=== PATIENT | female | born 1970 | race Caucasian/White ===

== ENCOUNTER 2025-03-04 13:27 | Outpatient (OUT) | payer BC, SELFPAY ==
--- OUTSIDE RECORDS SUMMARY | 2025-03-04 13:33 | XMS_ITS | Encounter Summary ---
Author Organization [facility] Address [address] [place] [address] Care Team Providers Care Sizing End Bander Name Role Phone Wayne Matta MD Unavailable Wayne Matta MD Primary Care Provider [phone] Encounter Details Date Type Department Care Team (Late st Contact Info) Description 02/20/2025 Telephone [facility] [address] [facility] [address] [place] [address] Leela Avina MA Social History Tobacco Use Types Packs/Day Years Used Date Smoking Tobacco: Former Cigarettes Smokeless Tobacco: Never Comments:Last smoked: 1-5 ye ars Alcohol Use Standard Drinks/Week Comments Not Currently 0 (1 standard drink = 0.6 oz pure alcohol) Caffeine intake: 1-2 cups per day Humiliation, Afraid, Rape, and Kick questionnair e Answer Date Recorded Within the last year, have y ou been afraid of your partner or ex-partner? No 02/01/2023 Within the last year, have y ou been humiliated or emotionally abused in other ways by your partner or ex-partner? No Within the last year, have y ou been kicked, hit, slapped, or otherwise physically hurt by your partner or ex-partner? No 02/01/2023 Within the last year, have y ou been raped or forced to have any kind of sexual activity by your partner or ex-partner? No 02/01/2023 Social Connection and Isolation Panel [NHANES] A nswer Date Recorded In a typical week, how many times do you talk on the phone with family, friends, or neighbors? Three times a week 02/01/2023 How often do you get togethe r with friends or relatives? Once a week 02/01/2023 How often do you attend chur ch or christianity services? Patient declined 02/01/2023 Do you belong to any clubs o r organizations such as catholic groups, unions, fraternal or athletic groups, or school groups? No 02/01/2023 How often do you attend meet ings of the clubs or organizations you belong to? Patient declined 02/01/2023 Are you , , di vorced, , never , or living with a partner? 02/01/2023 AUDIT-C Answer Date Recorded Q1: How often do you have a drink containing alc ohol? Monthly or less 02/01/2023 Q2: How many drinks containi ng alcohol do you have on a typical day when you are drinking? 1 or 2 02/01/2023 Q3: How often do you have si x or more drinks on one occasion? Never 02/01/2023 Overall Financial Resource Strain (CARDIA) Answe r Date Recorded How hard is it for you to pa y for the very basics like food, housing, medical care, and heating? Not very hard 02/01/2023 [facility] - Occupational Stress Questionnaire Answer Date Recorded Do you feel stress - tense, restless, nervous, or anxious, or unable to sleep at night because your mind is troubled all the time - these days? Very much 02/01/2023 Exercise Vital Sign Answer Date Recorde d On average, how many days pe r week do you engage in moderate to strenuous exercise (like a brisk walk)? 3 days 02/01/2023 On average, how many minutes do you engage in exercise at this level? 10 min 02/01/2023 Hunger Vital Sign Answer Date Recorded Within the past 12 months, y ou worried that your food would run out before you got the money to buy more. Never true 02/02/20 23 Within the past 12 months, t he food you bought just didn't last and you didn't have money to get more. Never true 02/01/2023 PRAPARE - Transportation Answer Date Re corded In the past 12 months, has l ack of transportation kept you from medical appointments or from getting medications? No 09/2022 In the past 12 months, has l ack of transportation kept you from meetings, work, or from getting things needed for daily living? No 02/01/2023 Housing Stability Vital Sign Answer Timothy e Recorded In the last 12 months, was t here a time when you were not able to pay the mortgage or rent on time? No 02/01/2023 In the last 12 months, how many places have you lived? 1 02/01/2023 In the last 12 months, was t here a time when you did not have a steady place to sleep or slept in a fci (including now)? No 02/01/2023 Comments Unknown Sex and Gender Information Value Date Recorded Sex Assigned at Female 01/31/2023 5:29 PM EDT Legal Sex Female 7:19 PM EDT Gender Identity Female 01/31/2023 5:29 PM EDT Sexual Orientation Straight 01/31/2023 5: 29 PM EDT documented as of this encounter Miscellaneous Notes * Telephone Encounter - Leela Avina MA - 02/20/2025 7:30 AM EDT Refaxed mamm to [facility] documented in this encounter Plan of Treatment Upcoming Encounters Date Type Department Care Team (Late st Contact Info) Description 03/04/2025 3:30 PM EDT Office Visit [facility] [facility] [address] [facility] [address] [place] [address] Wayne Matta MD [address] [facility] [address] [place] [address] documented as of this encounter Visit Diagnoses Not on filedocumented in this encounter Care Teams Sizing End Bander Relationship Specialty Start Date End Date Wayne Matta MD [address] [facility] [address] [place], [place] [id number] PCP - [place] [employer] 08/28/20 Wayne Matta MD [address] [place] [address] PCP - General Family Medicine 10/05/22 documented as of this encounter
--- OUTSIDE RECORDS SUMMARY | 2025-03-04 13:33 | XMS_ITS | Encounter Summary ---
Author Organization [facility] Address [address] [place] [address] Care Team Providers Care City Mail Carrier Name Role Phone Wayne Matta MD Unavailable Wayne Matta MD Primary Care Provider [phone] Encounter Details Date Type Department Care Team (Late st Contact Info) Description 06/01/2023 Abstract [facility] [address] [facility] 110 [place] [address] Wayne Matta MD 112 [facility] 110 [place] [address] Social History Tobacco Use Types Packs/Day Years [...] 02/01/2023 How often do you attend chur or holiness services? Patient declined 02/01/2023 Do you belong to any clubs o r organizations such as druze groups, unions, fraternal or athletic groups, or [...] care, and heating? Not very hard 02/01/2023 [facility] - Occupational Stress Questionnaire Answer Date Recorded [...] place to sleep or slept in a intermediate (including now)? No 02/01/2023 Comments Unknown Sex and Gender Information Value Date Recorded Sex Assigned at Female 01/31/2023 5:29 PM EDT Legal Sex Female 7:19 PM EDT Gender Identity Female 01/31/2023 5:29 PM EDT Sexual Orientation Straight 01/31/2023 5: 29 PM EDT documented as of this encounter Plan of Treatment Upcoming Encounters Date Type Department Care Team (Late st Contact Info) Description 03/04/2025 3:30 PM EDT Office Visit [facility] [place] [facility] [address] [place] [address] [place] [address] Wayne Matta MD [address] [facility] [address] [place] [address] documented as of this encounter Visit Diagnoses Not on filedocumented in this encounter Care Teams City Mail Carrier Relationship Specialty Start Date End Date Wayne Matta MD [address] [facility] [address] [place] [address] PCP - [place] [employer] 08/28/20 Wayne Matta MD [address] [facility] [address] [place] [address] PCP - General Family Medicine 10/05/22 documented as of this encounter
--- OUTSIDE RECORDS SUMMARY | 2025-03-04 13:33 | XMS_ITS | Encounter Summary ---
Author Organization [facility] Address [address] [place] [address] Care Team Providers Care Economic History Teacher Name Role Phone Wayne Matta MD Unavailable Wayne Matta MD Primary Care Provider [phone] Reason for Visit * Reason Onset Date Comments Med Refill 02/15/2025 Encounter Details Date Type Department Care Team (Late st Contact Info) Description 02/15/2025 Refill [facility] [address] [facility] 110 [place] [address] Rajwinder Mendiola PA [address] [facility] 110 [place] [address] Insomnia, unspecified type Social History Tobacco Use Types Packs/Day Years [...] How often do you attend chur or adventist services? Patient declined 02/01/2023 Do you belong to any clubs o r organizations such as gnosticist groups, unions, fraternal or athletic groups, or [...] care, and heating? Not very hard 02/01/2023 [facility] - Occupational Stress Questionnaire Answer Date [...] place to sleep or slept in a halfway (including now)? No 02/01/2023 Comments Unknown Sex and Gender Information Value Date Recorded Sex Assigned at Female 01/31/2023 5:29 PM EDT Legal Sex Female 7:19 PM EDT Gender Identity Female 01/31/2023 5:29 PM EDT Sexual Orientation Straight 01/31/2023 5: 29 PM EDT documented as of this encounter Miscellaneous Notes * Telephone Encounter - MALGORZATA Ramirez - 02/18/2025 8:10 AM EDT OARRS reviewed, Rx sent into patient's pharmacy. documented in this encounter Plan of Treatment Upcoming Encounters Date Type Department Care Team (Late st Contact Info) Description 03/04/2025 3:30 PM EDT Office Visit [facility] [place] [facility] [address] [facility] [address] [place] [address] Wayne Matta MD [address] [employer] [address] [place] [address] documented as of this encounter Visit Diagnoses Diagnosis Insomnia, unspecified type documented in this encounter Care Teams Economic History Teacher Relationship Specialty Start Date End Date Wayne Matta MD [address] [facility] 110 [place] [address] PCP - Paulo Castillo 08/28/20 Wayne Matta MD [address] [facility] 110 [place] [address] PCP - General Family Medicine 10/05/22 documented as of this encounter
--- OUTSIDE RECORDS SUMMARY | 2025-03-04 13:33 | XMS_ITS | Clinical Summary ---
Author Organization [employer] [facility] Address [id number] [place] [address] Care Team Providers Care Quality System Manager Name Role Phone Unavailable Primary Care Provider Unavailabl e Social History Tobacco Use Types Packs/Day Years Used Date Smoking Tobacco: Never Assessed Childcare Answer Date Recorded Childcare Unknown 11/08/2018 Employment Answer Date Recorded Employment Unknown 11/08/2018 Comments Unknown Sex and Gender Information Value Date Recorded Sex Assigned at Not on file Legal Sex Female 12:54 PM EST Gender Identity Not on file Sexual Orientation Not on file Plan of Treatment Not on file Medical Devices Not on file
--- OUTSIDE RECORDS SUMMARY | 2025-03-04 13:33 | XMS_ITS | Encounter Summary ---
Author Organization [facility] Address [address] [place] [address] Care Team Providers Care Trim Attacher Name Role Phone Wayne Matta MD Unavailable Wayne Matta MD Primary Care Provider [phone] Encounter Details Date Type Department Care Team (Late st Contact Info) Description 06/01/2023 Abstract [facility] [place] [facility] [address] [facility] 110 [place] [address] Wayne Matta MD 112 [facility] 110 [place] [address] Social History Tobacco Use Types Packs/Day Years [...] How often do you attend chur or denominational services? Patient declined 02/01/2023 Do you belong to any clubs o r organizations such as shinto groups, unions, fraternal or athletic groups, or [...] care, and heating? Not very hard 02/01/2023 [facility] - Occupational Stress Questionnaire Answer Date Recorded [...] place to sleep or slept in a [place] [facility] [place] facility (including now)? No 02/01/2023 Comments Unknown Sex [...] Visit [facility] [place] [facility] [address] [place] [address] [place] [address] Wayne Matta MD [address] [facility] [address] [place] [address] documented as of this encounter Visit Diagnoses Not on filedocumented in this encounter Care Teams Trim Attacher Relationship Specialty Start Date End Date Wayne Matta MD [address] [facility] [address] [place] [address] PCP - [place] [employer] 08/28/20 Wayne Matta MD [address] [facility] [address] [place] [address] PCP - General Family Medicine 10/05/22 documented as of this encounter
--- OUTSIDE RECORDS SUMMARY | 2025-03-04 13:33 | XMS_ITS | Clinical Summary ---
Author Organization [facility] Address [address] [place] [address] Care Team Providers Care Scruff Worker Name Role Phone Wayne Carmichael MD Unavailable Wayne Carmichael MD Primary Care Provider [phone] Allergies Active Allergy Reactions Criticality Noted Date Comments Amoxicillin Unknown 01/27/2023 Amoxicillin-Pot Clavulanate Unknown 05/27/2016 Yeast Infections Fish Protein-Containing Drug Products GI intolerance 01/27/2023 Rosuvastatin 01/27/2023 Other Reaction(s): muscle aches Shellfish Protein-Containing Drug Products 01/27/2023 Other Reaction(s): numbness Medications mometasone (Nasonex) 50 MCG/ACT nasal spray Administer 2 sprays into each nostril in the morning. Active losartan (Cozaar) 50 MG tablet Take 1 tablet by mouth in the morning. Active metoprolol succinate XL (Toprol-XL) 100 MG 24 hr tablet Take 1 tablet by mouth 1 (one) time each day. 3 Active atorvastatin (Lipitor) 40 MG tablet Take 1 tablet by mouth 1 (one) time each day at the same time. Active Lancets (OneTouch Delica Plus [id number]) misc Test daily 3 Active Blood Glucose Monitoring Suppl (Blood Glucose Monitor System) w/Device kitIndications: Type 2 diabetes mellitus with diabetic nephropathy, without long-term current use of insulin (HCC) 1 each Daily 1 kit 4 Active glucose blood (OneTouch Ultra Blue Test) test stripIndication s:Type 2 diabetes mellitus with diabetic nephropathy, without long-term current use of insulin (HCC) Use 1 daily 100 strip 3 4 Active magnesium 30 MG tablet Take 30 mg by mouth in the morning and 30 mg before bedtime. Active fluticasone (Flonase) 50 MCG/ACT nasal spray [place] 2 sprays every day by intranasal route as directed for 14 days. 5 Active fluconazole (Diflucan) 150 MG tabletIndicatio ns:Yeast infection Take 1 tablet and then three days later take 1 tablet 2 tablet 5 Active Semaglutide, 2 MG/DOSE, (Ozempic, 2 MG/DOSE,) 8 MG/3ML solution pen-injectorInd ications:Type 2 diabetes mellitus with diabetic nephropathy, without long-term current use of insulin (HCC) Inject 2 mg under the skin 1 (one) time per week 9 mL 3 5 Active ALPRAZolam (Xanax) 0.5 MG tabletIndicatio ns:Neck muscle spasm Take 1 tablet (0.5 mg) by mouth 2 (two) times a day as needed for anxiety 30 tablet 5 Active zolpidem (Ambien) 10 MG tabletIndicatio ns:Insomnia, unspecified type Take 1 tablet (10 mg) by mouth as needed at bedtime for sleep 90 tablet 5 05/19/20 25 Active zolpidem (Ambien) 10 MG tabletIndicatio ns:Insomnia, unspecified type Take 1 tablet (10 mg) by mouth as needed at bedtime for sleep 90 tablet 5 02/16/20 25 Discontin ued(Reord er) Active Problems Problem Noted Date Diagnosed Date Excessive sweating 05/28/2024 Assessment & Plan (05/28/2024 11:08 AM EST): Dry Lilly Consider Ditropan or Detrol Body mass index (BMI) 37.0-37.9, adult Assessment & Plan (09/20/2024 3:05 PM EDT): Weight loss encouraged Assessment & Plan (03/12/2024 3:30 PM EDT): Diet and exercise encouraged Tinnitus of both ears 03/12/2024 Assessment & Plan (05/28/2024 11:06 AM EST): Avoid Salt Coffee Normal hearing screen Refer Dr. Gabriel Loud exposure at a young age Assessment & Plan (03/12/2024 3:31 PM EDT): Will do Hearing test and referral to ENT Lethargic 01/09/2024 Morbid (severe) obesity due to excess calories 1 06/10/2022 Assessment & Plan (09/20/2024 3:05 PM EDT): Diet and Exercise Encouraged Assessment & Plan (03/12/2024 3:29 PM EDT): Weight loss encouraged Family history of coronary artery disease in mot her 03/08/2023 Neck muscle spasm 02/20/2023 Cervical radiculopathy 02/20/2023 Adjustment disorder with anxiety 01/27/2023 Assessment & Plan (09/06/2023 8:51 AM EDT): Patient's Medicine is effective at controlling symptoms at current dose and frequency. PDMP reviewed with no evidence of overuse and abuse D/W patient to avoid use of benzodiazepines when consuming alcohol Advised against operating heavy machinery and driving long distances while on medicines. Arthritis of right foot 01/27/2023 Cystic breast 01/27/2023 Degeneration of lumbar intervertebral disc 01/27 Dribbling of urine 01/27/2023 Essential hypertension 01/27/2023 Assessment & Plan (09/20/2024 3:17 PM EDT): Our specific goals, for your hypertension, is to keep your blood pressure less than 140/90, and the importance of weight control. We made recommendations on how to control your blood pressure, and minimize your risk of these copmplications. We also discussed your current barriers to a healthy living and importance of healthy diet and exercise. Prior to your visit today we have reviewed your chart and formed a plan to assist with providing you the best possible care. We reviewed the possible complications of hypertension including, stroke, heart failure and kidney impairment. In addition, we discussed your medications, the importance of taking them as prescribed. DASH diet handouts Assessment & Plan (03/08/2023 8:45 AM EDT): Our specific goals, for your hypertension, is to keep your blood pressure less than 140/90, and the importance of weight control. We made recommendations on how to control your blood pressure, and minimize your risk of these copmplications. We also discussed your current barriers to a healthy living and importance of healthy diet and exercise. Prior to your visit today we have reviewed your chart and formed a plan to assist with providing you the best possible care. We reviewed the possible complications of hypertension including, stroke, heart failure and kidney impairment. In addition, we discussed your medications, the importance of taking them as prescribed. DASH diet handouts Gastritis, unspecified, without bleeding 023 Gastrocnemius equinus of left lower extremity Gastroduodenitis 01/27/2023 Hyperlipidemia 01/27/2023 Assessment & Plan (09/20/2024 3:05 PM EDT): This is a chronic medical condition that is stable since last assessment. No changes in treatment are suggested at this time. Continue Current meds. Assessment & Plan (03/08/2023 8:46 AM EDT): This is a chronic medical condition that is stable since last assessment. No changes in treatment are suggested at this time. Insomnia 01/27/2023 Low HDL (under 40) 01/27/2023 Plantar fascial fibromatosis 01/27/2023 Sinusitis 01/27/2023 Assessment & Plan (09/20/2024 3:17 PM EDT): Add Probiotic to help replenish the good bacteria that are destroyed by the Antibiotics Florastor Florajen Align or try Activia in Yogurt Probiotics reduce the risk of antibiotic induced diarrhea Status post hysterectomy 01/27/2023 Type 2 diabetes mellitus with diabetic nephropat hy 01/27/2023 Assessment & Plan (09/20/2024 3:17 PM EDT): No Tobacco use Follow ADA 1800 diet low carbohydrate Continue Med Compliance Goal LDL less than 100 Goal BP 130/80 Goal HgbA1c < 7.0% Monitor Feet, monitor for infection Needs Exercise Yearly eye exams Prior to your visit today we reviewed your chart and outlined testing and treatment needed for your care. Reviewed poissble complications of diabetes including, loss of vision, kidney failure and increased risk of heart attacks and stroke. We made recommendations on how to control your blood sugars, and minimize your risk of these complications. We discussed your current barriers to a healthy living and importance of healthy diet and exercise. Has been doing Chromium Assessment & Plan (03/12/2024 3:31 PM EDT): No Tobacco use Follow ADA 1800 diet low carbohydrate Continue Med Compliance Goal LDL less than 100 Goal BP 130/80 Goal HgbA1c < 7.0% Monitor Feet, monitor for infection Needs Exercise Yearly eye exams Prior to your visit today we reviewed your chart and outlined testing and treatment needed for your care. Reviewed poissble complications of diabetes including, loss of vision, kidney failure and increased risk of heart attacks and stroke. We made recommendations on how to control your blood sugars, and minimize your risk of these complications. We discussed your current barriers to a healthy living and importance of healthy diet and exercise. Assessment & Plan (09/06/2023 8:50 AM EDT): No Tobacco use Follow ADA 1800 diet low carbohydrate Continue Med Compliance Goal LDL less than 100 Goal BP 130/80 Goal HgbA1c < 7.0% Monitor Feet, monitor for infection Needs Exercise Yearly eye exams Prior to your visit today we reviewed your chart and outlined testing and treatment needed for your care. Reviewed poissble complications of diabetes including, loss of vision, kidney failure and increased risk of heart attacks and stroke. We made recommendations on how to control your blood sugars, and minimize your risk of these complications. We discussed your current barriers to a healthy living and importance of healthy diet and exercise. Assessment & Plan (03/08/2023 8:44 AM EDT): No Tobacco use Follow ADA 1800 diet low carbohydrate Continue Med Compliance Goal LDL less than 100 Goal BP 130/80 Goal HgbA1c < 7.0% Monitor Feet, monitor for infection Needs Exercise Yearly eye exams Prior to your visit today we reviewed your chart and outlined testing and treatment needed for your care. Reviewed poissble complications of diabetes including, loss of vision, kidney failure and increased risk of heart attacks and stroke. We made recommendations on how to control your blood sugars, and minimize your risk of these complications. We discussed your current barriers to a healthy living and importance of healthy diet and exercise. Vaginospasm 01/27/2023 Pelvic mass in female 05/29/2016 Pelvic pain in female 05/29/2016 Encounters Date Type Department Care Team Description 03/04/2025 3:30 PM EDT Office Visit [facility] [address] [facility] [address] [place] [address] Wayne Carmichael MD 02/20/2025 Telephone [facility] [address] [facility] [address] [place] [address] Leela Avina MA 02/15/2025 Refill [facility] [address] [facility] [address] [place] [address] Rajwinder Mendiola PA Insomnia, unspecified type 12/10/2024 Refill [facility] [address] [facility] [address] [place] [address] Wayne Carmichael MD Neck muscle spasm 12/10/2024 Refill [facility] [address] [facility] [address] [place] [address] Wayne Carmichael MD Type 2 diabetes mellitus with diabetic nephropathy, without long-term current use of insulin ([facility]) 12/10/2024 Refill [facility] [address] [facility] [address] [place] [address] Rajwinder Mendiola PA Yeast infection from Last 3 Months Immunizations Immunization Administration Dates Next Due Influenza Whole 03/03/2010 Zoster, Recombinant 12/19/2021,10/09/2021 Family History Medical History Relation Name Comments Arthritis Father Jamel Cancer Father Jamel Diabetes Father Jamel Stroke Father Jamel Hypertension Maternal Grandfather Tunde Diabetes Maternal Grandmother Mackenzie Stroke Maternal Grandmother Mackenzie Arthritis Mother Elida Diabetes Mother Elida Stroke Mother Elida Vision loss Mother's Sister Neda Cancer Sister Luisa Relation Name Status Comments Father Jamel Maternal Grandfather Tunde Maternal Grandmother Mackenzie Mother Elida Mother's Sister Neda Sister Luisa Social History Tobacco Use Types Packs/Day Years Used Date Smoking Tobacco: Former Cigarettes Smokeless Tobacco: Never Tobacco Cessation:Counseling Given: Not Answered Comments:Last smoked: 1-5 years Alcohol Use Standard Drinks/Week Comments Not Currently [...] any clubs o r organizations such as sikh groups, unions, fraternal or athletic groups, or [...] care, and heating? Not very hard 02/01/2023 PHQ-2 Answer Date Recorded Patient Health Questionnaire-2 Score 0 03/04/2025 [facility] - Occupational Stress [...] place to sleep or slept in a senior care (including now)? No 02/01/2023 Comments Unknown Sex and Gender Information Value Date Recorded Sex Assigned at Female 01/31/2023 5:29 PM EDT Legal Sex Female 7:19 PM EDT Gender Identity Female 01/31/2023 5:29 PM EDT Sexual Orientation Straight 01/31/2023 5: 29 PM EDT Last Filed Vital Signs Vital Sign Reading Time Taken Comments Blood Pressure 124/82 09/20/2024 2:59 PM EDT Pulse 98 09/20/2024 2:59 PM EDT Temperature - - Respiratory Rate 16 02/01/2023 1:13 PM EDT Oxygen Saturation 94% 09/20/2024 2:59 PM EDT Inhaled Oxygen Concentration - - Weight 93.9 kg (207 lb) 09/20/2024 2:59 PM EDT Height 157.5 cm (5' 2 ) 09/20/2024 2:59 PM EDT Body Mass Index 37.86 09/20/2024 2:59 PM EDT Plan of Treatment Upcoming Encounters Date Type Department Care Team (Late st Contact Info) Description 03/04/2025 3:30 PM EDT [facility] [address] [place] [address] Wayne Carmichael MD [address] [facility] [address] [place] [address] Health Maintenance Due Date Last Done Comments CT Colonography 1970 FIT-DNA 1970 FIT 1970 FOBT 1970 Sigmoidoscopy 1970 Mammogram 06/02/2023 06/02/2022, 11/28, 03/06/2019, Additional history exists Diabetes: Hemoglobin A1C 12/12/2024 025, 03/12/2024, 09/06/2023, Additional history exists Diabetes: Retinopathy Screening 12/29/2024 3, 08/03/2018 Influenza Vaccine (#1) 2025 03/03/2010 Diabetes: Urine Protein Screening 09/12/2025 09/12/2024, 09/06/2023, 05/06/2022, Additional history exists Colonoscopy 05/04/2026 05/04/2016 Colorectal Cancer Screening 05/04/2026 Procedures Procedure Name Priority Date/Time Associated Diagnosis Comments MICROALBUMIN / CREATININE URINE RATIO Routine 09/12/2024 8:03 AM EDT Type 2 diabetes mellitus with diabetic nephropathy, without long-term current use of insulin (HCC) Annual physical exam HEMOGLOBIN A1C Routine 09/12/2024 8:03 AM EDT Type 2 diabetes mellitus with diabetic nephropathy, without long-term current use of insulin (HCC) Annual physical exam DIABETIC RETINOPATHY SCREENING - OU - BOTH EYES Routine 12/29/2022 1:53 PM EDT BI MAMMOGRAM SCREENING TOMOSYNTHESIS BILATERAL Routine 06/02/2022 COLONOSCOPY Routine 05/04/2016 12:00 PM EST from Last 3 Months or Most Recently Relevant to Health Maintenance Results * Microalbumin / creatinine urine ratio (09/12/2024 8:03 AM EDT) CREATININE, RANDOM URINE 141 20 - 275 mg/dL [facility] ALBUMIN, URINE 0.5 See Note: mg/dL [facility] Comment: Reference Range: Reference Range Not established ALBUMIN/CREATININE RATIO, RANDOM URINE 4 <30 mg/g creat [facility] Comment: The ADA defines abnormalities in albumin excretion as follows: Albuminuria Category Result (mg/g creatinine) Normal to Mildly increased <30 Moderately increased 30-299 Severely increased > OR = 300 The ADA recommends that at least two of three specimens collected within a 3-6 month period be abnormal before considering a patient to be within a diagnostic category. Urine Urine specimen obtained by clean catch procedure / Unknown 09/12/2024 8:03 AM EDT 09/12/2024 8:04 AM EDT Narrative [facility] - 09/13/2024 11:39 AM EDT FASTING:YES FASTING: YES Resulting Agency Comment Performing Organization Information Site ID: QPT Name: [facility] [employer] [facility] Address: [address] [place] [address], [address] [place] [phone] Director: Donald Dickey MD Wayne Carmichael MD LAB URINE ORDERABLES Final Resul t Performing Organization Address [facility] Co de Phone Number [facility] * (ABNORMAL) Hemoglobin A1c (09/12/2024 8:03 AM EDT) Hemoglobin A1C 6.4(H) <5.7 % [facility] Comment: For someone without known diabetes, a hemoglobin A1c value between 5.7% and 6.4% is consistent with prediabetes and should be confirmed with a follow-up test. For someone with known diabetes, a value <7% indicates that their diabetes is well controlled. A1c targets should be individualized based on duration of diabetes, age, comorbid conditions, and other considerations. This assay result is consistent with an increased risk of diabetes. Currently, no consensus exists regarding use of hemoglobin A1c for diagnosis of diabetes for children. Blood Venous blood specimen / Unknown 09/12/2024 8:03 AM EDT 09/12/2024 8:04 AM EDT Narrative [facility] - 09/13/2024 11:39 AM EDT FASTING:YES FASTING: YES Resulting Agency Comment Performing Organization Information Site ID: QPT Name: [facility] [employer] [facility] Address: [address] [place] [address], [address] [place] [phone] Director: Donald Dickey MD Wayne Carmichael MD LAB BLOOD ORDERABLES Final Resul t Performing Organization Address [facility] Co de Phone Number [facility] * Diabetic Retinopathy Screening - OU - Both Eyes (12/29/2022 1:53 PM EDT) Anatomical Region Laterality Modality Head Other Wayne Carmichael MD OPHTH PHOTOGRAPHY Final Result * Bilateral screening mammogram with tomosynthesis (06/02/2022) Anatomical Region Laterality Modality Breast Bilateral Mammography Narrative 06/02/2022 12:00 AM EST PERFORMED AT [facility] LOCATION:[place] [address] Patient: JENIFFER FELICIANO Exam Date: 06/02/2022 : 1970 Gender:F Ordering : DR WAYNE CARMICHAEL M.D. Admission #: [id number] Family : Order #: [id number] CLICK HERE TO VIEW EXAM RADIOLOGY REPORT PROCEDURE: MAMMOGRAM SCREENING 3D BILATERAL CAD COMPARISON: MG MAMM SCREEN EDUIN W CAD 02/27/2019. MG MAMM SCREEN 3D EDUIN CAD 12/23/2020. INDICATIONS: Screening mammography Calculator Name NCI Breast Cancer Risk Assessment Tool 5 Year Breast Cancer Risk 1.20% Lifetime Breast Cancer Risk 9.60% Personal Breast Cancer No Personal Ovarian Cancer No Treatments None Family Cancers None LOCATION: [facility] BREAST COMPOSITION: Extremely dense which lowers the sensitivity of mammography. FINDINGS: DIAGNOSTIC CATEGORY 2--BENIGN FINDING: RIGHT BREAST: No significant suspicious finding. Scattered benign-appearing calcifications are present. No significant change has occurred. LEFT BREAST: No significant suspicious finding. Scattered benign-appearing calcifications are present. No significant change has occurred. RECOMMENDATIONS: ROUTINE MAMMOGRAM AND CLINICAL EVALUATION IN 12 MONTHS. PLEASE NOTE: A NORMAL MAMMOGRAM DOES NOT EXCLUDE THE POSSIBILITY OF BREAST CANCER. A CLINICALLY SUSPICIOUS PALPABLE LUMP SHOULD BE BIOPSIED. Dictated by: Yanick Barnett M.D. on 06/03/2022 at 08:32 Approved by: Yanick Barnett M.D. on 06/03/2022 at 08:36 Procedure Note CONVERSION, GENERIC - 12/03/2022 PERFORMED AT [facility] LOCATION:[place] [address] Patient: JENIFFER FELICIANO Exam Date: 06/02/2022 : 1970 Gender:F Ordering : DR WAYNE CARMICHAEL M.D. Admission #: [id number] Family : Order #: [id number] CLICK HERE TO VIEW EXAM RADIOLOGY REPORT PROCEDURE: MAMMOGRAM SCREENING 3D BILATERAL CAD COMPARISON: MG MAMM SCREEN EDUIN W CAD 02/27/2019. MG MAMM SCREEN 3D EDUIN CAD 12/23/2020. INDICATIONS: Screening mammography Calculator Name NCI Breast Cancer Risk Assessment Tool 5 Year Breast Cancer Risk 1.20% Lifetime Breast Cancer Risk 9.60% Personal Breast Cancer No Personal Ovarian Cancer No Treatments None Family Cancers None LOCATION: [facility] BREAST COMPOSITION: Extremely dense which lowers the sensitivity of mammography. FINDINGS: DIAGNOSTIC CATEGORY 2--BENIGN FINDING: RIGHT BREAST: No significant suspicious finding. Scatteredbenign-appearing calcifications are present. No significant change has occurred. LEFT BREAST: No significant suspicious finding. Scatteredbenign-appearing calcifications are present. No significant change has occurred. RECOMMENDATIONS: ROUTINE MAMMOGRAM AND CLINICAL EVALUATION IN 12 MONTHS. PLEASE NOTE: A NORMAL MAMMOGRAM DOES NOT EXCLUDE THE POSSIBILITY OFBREAST CANCER. A CLINICALLY SUSPICIOUS PALPABLE LUMP SHOULD BE BIOPSIED. Dictated by: Yanick Barnett M.D. on 06/03/2022 at 08:32 Approved by: Yanick Barnett M.D. on 06/03/2022 at 08:36 Wayne Carmichael MD IMG BI PROCEDURES Final Result * Colonoscopy (05/04/2016 12:00 PM EST) Anatomical Region Laterality Modality Endoscopy 05/04/2016 12:0 0 PM EST Narrative 05/04/2016 12:00 PM EST PERFORMED AT [facility] LOCATION:[id number] NEG Procedure Note CONVERSION, GENERIC - 10/14/2022 PERFORMED AT [facility] LOCATION:[id number] NEG Wayne Carmichael MD ENDOSCOPY PROCEDURE ORDERABLES F inal Result from Last 3 Months or Most Recently Relevant to Health Maintenance Insurance [facility] Care Teams Scruff Worker Relationship Specialty Start Date End Date Wayne Carmichael MD [address] [facility] [address] [place] [address] PCP - [employer] 08/28/20 Wayne Carmichael MD [address] [facility] [address] [place] [address] PCP - General Family Medicine 10/05/22
--- OUTSIDE RECORDS SUMMARY | 2025-03-04 13:33 | XMS_ITS | Encounter Summary ---
Author Organization [facility] Address [address] [place] [address] Care Team Providers Care Bolt Maker Name Role Phone Wayne Matta MD Unavailable Wayne Matta MD Primary Care Provider [phone] Encounter Details Date Type Department Care Team (Late st Contact Info) Description 01/16/2024 Clinisync Result Encounter [facility] External Department Unsolicited Provider, Generic External Data Social History Tobacco Use Types Packs/Day Years [...] often do you attend chur ch or taoism services? Patient declined 02/01/2023 Do you belong [...] care, and heating? Not very hard 02/01/2023 [facility] - Occupational Stress [...] place to sleep or slept in a half-way (including now)? No 02/01/2023 Comments Unknown Sex [...] Description 03/04/2025 3:30 PM EDT Office Visit [facility] Rick Melgar 112 [facility] 110 [place] [address] Wayne Matta MD 112 [facility] 110 [place] [address] documented as of this encounter Procedures Procedure Name Priority Date/Time Associated Diagnosis Comments CT CARDIAC CALCIUM SCORING 01/16/2024 4:00 PM EDT documented in this encounter Results * CT CARDIAC CALCIUM SCORING (01/16/2024 4:00 PM EDT) Anatomical Region Laterality Modality Radiographic Sweetie ging 01/16/2024 4:00 PM EDT Narrative 01/16/2024 7:19 PM EDT Interpreted By: Anjum Rivera, STUDY: CT CARDIAC SCORING WO IV CONTRAST; 01/16/2024 4:28 pm INDICATION: Signs/Symptoms:hyperlipedemia. COMPARISON: None. ACCESSION NUMBER(S): [id number] ORDERING CLINICIAN: ANGELO OMER TECHNIQUE: Using prospective ECG gating, CT scan of the coronary arteries was performed without intravenous contrast. Coronary calcium scoring was performed according to the method of Agatston. CT Dose-Length Product (DLP): 69.2 mGy*cm CT Dose Reduction Employed: Yes, prospective gating, iterative reconstruction. FINDINGS: The score and distribution of calcium in the coronary arteries is as follows: LM 0 LAD 27 LCx 0 RCA 8 Total 35 The visualized ascending thoracic aorta measures 3.3 cm in diameter. The heart is normal in size. No pericardial effusion is present. The main pulmonary artery, right and left pulmonary artery are normal in size. IMPRESSION: 1. Coronary artery calcium score of 35*. 2. DOSS 90th percentile for age, gender, and race in asymptomatic patients. *Coronary Artery Agatston score Score risk Very low 1-99 Mildly increased 100-299 Moderately increased >300 Moderate to severely increased >800 Real et al. JCCT 2016 (http://dx.doi.org/10.1016/j.jcct.2016.11.003) DOSS Percentile In general, greater than 75th percentile for age, gender, and race is considered to be a higher relative risk and higher lifetime risk condition. Greater than 75th percentile=moderate to severely increased relative risk irrespective of the score. Advise using DOSS 10 year CHD risk calculator below for better discrimination of risk. DOSS 10-Year CHD Risk with Coronary Artery Calcification can be calcuate using link below https://www.doss-nhlbi.org/MESACHDRisk/MesaRiskScore/RiskScore.aspx Issac et al. JACC 2015 (http://dx.doi.org/10.1016/j.j acc.2015.08.035) Reading Vending Manager: Dr. Anjum Rivera, Date: 01/16/2024 7:18 pm Signed by: Anjum Rivera 01/16/2024 7:19 PM Dictation workstation: [id number] Procedure Note Radiology, Radiologist, - 01/16/2024 Interpreted By: Anjum Rivera, STUDY: CT CARDIAC SCORING WO IV CONTRAST; 01/16/2024 4:28 pm INDICATION: Signs/Symptoms:hyperlipedemia. COMPARISON: None. ACCESSION NUMBER(S): [id number] ORDERING CLINICIAN: ANGELO OMER TECHNIQUE: Using prospective ECG gating, CT scan of the coronary arteries was performed without intravenous contrast. Coronary calcium scoring was performed according to the method of Agatston. CT Dose-Length Product (DLP): 69.2 mGy*cm CT Dose Reduction Employed: Yes, prospective gating, iterative reconstruction. FINDINGS: The score and distribution of calcium in the coronary arteries is as follows: LM 0 LAD 27 LCx 0 RCA 8 Total 35 The visualized ascending thoracic aorta measures 3.3 cm in diameter. The heart is normal in size. No pericardial effusion is present. The main pulmonary artery, right and left pulmonary artery are normal in size. IMPRESSION: 1. Coronary artery calcium score of 35*. 2. DOSS 90th percentile for age, gender, and race in asymptomatic patients. *Coronary Artery Agatston score Score risk Very low 1-99 Mildly increased 100-299 Moderately increased >300 Moderate to severely increased >800 Real et al. JCCT 2016 (http://dx.doi.org/10.1016/j.jcct.2016.11.003) DOSS Percentile In general, greater than 75th percentile for age, gender, and race is considered to be a higher relative risk and higher lifetime risk condition. Greater than 75th percentile=moderate to severely increased relative risk irrespective of the score. Advise using DOSS 10 year CHD risk calculator below for better discrimination of risk. DOSS 10-Year CHD Risk with Coronary Artery Calcification can be calcuate using link below https://www.doss-nhlbi.org/MESACHDRisk/MesaRiskScore/RiskScore.aspx Issac espinosa al. JACC 2015 (http://dx.doi.org/10.1016/j.j acc.2015.08.035) Reading Vending Manager: Dr. Anjum Rivera, Date: 01/16/2024 7:18 pm Signed by: Anjum Rivera 01/16/2024 7:19 PM Dictation workstation: [id number] us Generic External Data Provider IMG XR PROCEDURES Final Result documented in this encounter Visit Diagnoses Not on filedocumented in this encounter Care Teams Bolt Maker Relationship Specialty Start Date End Date Wayne Matta MD [address] [facility] 110 [place] [address] [facility] Wayne Matta MD [address] [facility] 110 [place] [address] PCP - General Family Medicine 10/05/22 documented as of this encounter
--- OUTSIDE RECORDS SUMMARY | 2025-03-04 13:33 | XMS_ITS | Clinical Summary ---
Author Organization [facility] Address [address], [address] [place] [address] Care Team Providers Care Scrap Yard Worker Name Role Phone Wayne Matta MD Primary Care Provider [phone] Allergies Active Allergy Reactions Criticality Noted Date Comments Amoxicillin Other (See Comments) 05/27/2016 Yeast Infections Amoxicillin-Pot Clavulanate Other (See Comments) 05/27/2016 Yeast Infections Rosuvastatin Calcium Other (See Comments) 05/27 Muscle ache Fish-Derived Products Nausea And Vomiting Low 05/27 Shellfish-Derived Products Other (See Comments) 05/27/2016 Throat Swelling Simvastatin Swelling 05/27/2016 Medications atorvastatin (LIPITOR) 40 MG tablet Take 40 mg by mouth daily Active zolpidem (AMBIEN) 10 MG tablet Take by mouth nightly as needed for Sleep Active ALPRAZolam (XANAX) 0.5 MG tablet Take 0.5 mg by mouth nightly as needed for Sleep Active metoprolol succinate (TOPROL XL) 100 MG extended release tablet Take 100 mg by mouth daily Active losartan (COZAAR) 50 MG tablet Take 50 mg by mouth daily Active doxycycline hyclate (VIBRAMYCIN) 100 MG capsule 05/18/2016 Acti ve VIBERZI 100 MG TABS 05/14/2016 Active mometasone (NASONEX) 50 MCG/ACT nasal spray 05/12/2016 Active Active Problems Problem Noted Date Diagnosed Date Pelvic mass in female 05/29/2016 Pelvic pain in female 05/29/2016 Family History Medical History Relation Name Comments Heart Disease Father Hypertension Father Diabetes Mother Heart Disease Mother Hypertension Mother Relation Name Status Comments Father Mother Social History Tobacco Use Types Packs/Day Years Used Date Smoking Tobacco: Every Day Comments No Sex and Gender Information Value Date Recorded Sex Assigned at Not on file Legal Sex Female 11:14 AM EST Gender Identity Not on file Sexual Orientation Not on file Last Filed Vital Signs Vital Sign Reading Time Taken Comments Blood Pressure 146/83 06/22/2016 9:37 AM EST Pulse 95 06/22/2016 9:37 AM EST Temperature - - Respiratory Rate - - Oxygen Saturation 95% 06/22/2016 9:37 AM EST Inhaled Oxygen Concentration - - Weight 103.4 kg (228 lb) 06/22/2016 9:37 AM EST Height 157.5 cm (5' 2 ) 06/22/2016 9:37 AM EST Body Mass Index 41.7 06/22/2016 9:37 AM EST Plan of Treatment Not on file Insurance BC Care Teams Scrap Yard Worker Relationship Specialty Start Date End Date Wayne Matta MD PCP - General Family Medicine 05/31/16
--- OUTSIDE RECORDS SUMMARY | 2025-03-04 13:33 | XMS_ITS | Encounter Summary ---
Author Organization [facility] Address [address] [place] [address] Care Team Providers Care On Site Construction Superintendent Name Role Phone Wayne Matta MD Unavailable Wayne Matta MD Primary Care Provider [phone] Encounter Details Date Type Department Care Team (Late st Contact Info) Description 01/10/2024 Abstract [facility] [place] [facility] [address] [facility] 110 [place] [address] Wayne Matta MD 112 [facility] 110 [place] [address] Social History Tobacco Use Types Packs/Day Years [...] How often do you attend chur or bahai services? Patient declined 02/01/2023 Do you belong to any clubs o r organizations such as moravian groups, unions, fraternal or athletic groups, or [...] care, and heating? Not very hard 02/01/2023 [facility] - Occupational Stress Questionnaire Answer Date Recorded [...] place to sleep or slept in a care home (including now)? No 02/01/2023 Comments Unknown Sex [...] Visit [facility] [place] Melgar [address] [place] [address] [place] [address] Wayne Matta MD [address] [facility] 110 [place] [address] documented as of this encounter Visit Diagnoses Not on filedocumented in this encounter Care Teams On Site Construction Superintendent Relationship Specialty Start Date End Date Wayne Matta MD [address] [facility] 110 [place] [address] PCP - [place] [employer] 08/28/20 Wayne Matta MD [address] [facility] 110 [place] [address] PCP - General Family Medicine 10/05/22 documented as of this encounter
--- OUTSIDE RECORDS SUMMARY | 2025-03-04 13:33 | XMS_ITS | Clinical Summary ---
Author Organization [facility] Address [address] [place] [address] Phone Care Team Providers Care Tubing Mill Operator Name Role Phone Wayne Matta MD Primary Care Provider [phone] Allergies Active Allergy Reactions Criticality Noted Date Comments Amoxicillin Unknown 04/10/2023 Rosuvastatin Myalgia 04/10/2023 Simvastatin Swelling 04/10/2023 Medications ALPRAZolam (Xanax) 0.5 mg tablet Take 1 tablet (0.5 mg) by mouth as needed at bedtime. Active mometasone (Nasonex) 50 mcg/actuation nasal spray Administer 1 spray into each nostril once daily. Active semaglutide (Ozempic) 2 mg/dose (8 mg/3 mL) pen injector Inject under the skin 1 (one) time per week. Active zolpidem (Ambien) 10 mg tablet Take 1 tablet (10 mg) by mouth once daily at bedtime. Active atorvastatin (Lipitor) 40 mg tabletIndications: Mixed hyperlipidemia Take 1 tablet (40 mg) by mouth once daily. 90 tablet 3 5 026 Active losartan (Cozaar) 50 mg tabletIndications: Benign essential hypertension Take 1 tablet (50 mg) by mouth once daily. 90 tablet 3 5 026 Active metoprolol succinate XL (Toprol-XL) 100 mg 24 hr tabletIndications: Benign essential hypertension Take 1 tablet (100 mg) by mouth once daily. 90 tablet 3 5 026 Active Active Problems Problem Noted Date Diagnosed Date BMI 37.0-37.9, adult 01/09/2024 Lethargic 01/09/2024 Benign essential hypertension 04/10/2023 Diabetes mellitus (Multi) 04/10/2023 Hyperlipidemia 04/10/2023 Resolved Problems Problem Noted Date Diagnosed Date Resolved Date Morbid obesity with BMI of 4 0.0-44.9, adult (Multi) 04/10/2023 01/09/2024 Immunizations Immunization Administration Dates Next Due Influenza Whole 03/03/2010 Zoster vaccine, recombinant, adult (SHINGRIX) ,10/09/2021 Family History Medical History Relation Name Comments Stroke Father intravascular stent placement Father Hypertension Mother Stroke Mother high serum cholestanol Mother Relation Name Status Comments Father Mother Social History Tobacco Use Types Packs/Day Years Used Date Smoking Tobacco: Former Cigarettes Q uit: 2019 Smokeless Tobacco: Never Tobacco Cessation:Counseling Given: Not Answered Alcohol Use Standard Drinks/Week Comments Never 0 (1 standard drink = 0.6 oz pur e alcohol) Comments Unknown Sex and Gender Information Value Date Recorded Sex Assigned at Not on file Legal Sex Female 8:31 AM EST Gender Identity Not on file Sexual Orientation Not on file Last Filed Vital Signs Vital Sign Reading Time Taken Comments Blood Pressure 130/70 10/16/2024 10:15 AM EDT Pulse 76 10/16/2024 10:15 AM EDT Temperature - - Respiratory Rate - - Oxygen Saturation - - Inhaled Oxygen Concentration - - Weight 93 kg (205 lb) 10/16/2024 10:15 AM EDT Height 157.5 cm (5' 2 ) 10/16/2024 10:15 AM EDT Body Mass Index 37.49 10/16/2024 10:15 AM EDT Plan of Treatment Upcoming Encounters Date Type Department Care Team (Late st Contact Info) Description 07/10/2025 9:30 AM EST Office Visit [facility] [address] [address] Nahid Coats MD [address] [facility], [address] [place] [address] Health Maintenance Due Date Last Done Comments CT Colonography 1970 Diabetes: Hemoglobin A1C 1970 FIT-DNA (Cologuard) 1970 FIT 1970 HIV Screening 1970 Sigmoidoscopy 1970 MMR Vaccines (1 of 1 - Standard series) 1971 Diabetes: Retinopathy Screening 01/05/1980 Hepatitis C Screening 01/05/1988 Hepatitis B Vaccines (1 of 3 - 19+ 3-dose series) 1989 Pneumococcal Vaccine (1 of 2 - PCV) 1989 Cervical Cancer Screening 1991 HPV/Cotest 1991 Pap Smear 1991 DTaP/Tdap/Td Vaccines (1 - Tdap) 01/05/1992 Mammogram 06/02/2023 06/02/2022, 06/02/2022, 12/23/2020 COVID-19 Vaccine (4 - 2024-2 6 season) 2025 06/11/2021, 09/10/2020, 08/13/2020 Influenza Vaccine (#1) 2025 03/03/2010 Diabetes: Urine Protein Screening 09/12/2025 09/12/2024, 09/06/2023 Lipid Panel 09/12/2025 09/12/2024, 04/01/2020 Yearly Adult Physical 09/21/2025 09/20/2024 Colonoscopy 05/04/2026 05/04/2016 Colorectal Cancer Screening 05/04/2026 Zoster Vaccines Completed 12/19/2021, 10/09/2021 HIB Vaccines Aged Out No longer eligi ble based on patient's age to complete this topic HPV Vaccines Aged Out No longer eligi ble based on patient's age to complete this topic Hepatitis A Vaccines Aged Out No long er eligible based on patient's age to complete this topic IPV Vaccines Aged Out No longer eligi ble based on patient's age to complete this topic Meningococcal Vaccine Aged Out No domenico neri eligible based on patient's age to complete this topic Rotavirus Vaccines Aged Out No longer eligible based on patient's age to complete this topic Procedures Procedure Name Priority Date/Time Associated Diagnosis Comments LIPID PANEL Routine 04/01/2020 8:52 AM EST from Last 3 Months or Most Recently Relevant to Health Maintenance Results * (ABNORMAL) Lipid Panel (04/01/2020 8:52 AM EST) Cholesterol 156 0 - 199 mg/dL [facility] Comment: . AGE DESIRABLE BORDERLINE HIGH HIGH 0-19 Y 0 - 169 170 - 199 >/= 200 20-24 Y 0 - 189 190 - 224 >/= 225 >24 Y 0 - 199 200 - 239 >/= 240 All ranges are based on fasting samples. Specific therapeutic targets will vary based on patient-specific cardiac risk. . Pediatric guidelines reference:Pediatrics 2011, 128(S5). Adult guidelines reference: NCEP ATPIII Guidelines, SUMAN 2001, 258:2486-97 . Venipuncture immediately after or during the administration of Metamizole may lead to falsely low results. Testing should be performed immediately prior to Metamizole dosing. HDL 49.0 mg/dL [facility] Comment: . AGE VERY LOW LOW NORMAL HIGH 0-19 Y < 35 < 40 40-45 ---- 20-24 Y ---- < 40 >45 ---- >24 Y ---- < 40 40-60 >60 . Cholesterol/HDL Ratio 3.2 [facility] Comment: REF VALUES DESIRABLE < 3.4 HIGH RISK > 5.0 LDL 69 0 - 99 mg/dL [facility] Comment: . NEAR BORD AGE DESIRABLE OPTIMAL HIGH HIGH VERY HIGH 0-19 Y 0 - 109 --- 110-129 >/= 130 ---- 20-24 Y 0 - 119 --- 120-159 >/= 160 ---- >24 Y 0 - 99 100-129 130-159 160-189 >/=190 . VLDL 38 0 - 40 mg/dL [facility] Triglycerides 189(H) 0 - 149 mg/dL [facility] Comment: . AGE DESIRABLE BORDERLINE HIGH HIGH VERY HIGH 0 D-90 D 19 - 174 ---- ---- ---- 91 D- 9 Y 0 - 74 75 - 99 >/= 100 ---- 10-19 Y 0 - 89 90 - 129 >/= 130 ---- 20-24 Y 0 - 114 115 - 149 >/= 150 ---- >24 Y 0 - 149 150 - 199 200- 499 >/= 500 . Venipuncture immediately after or during the administration of Metamizole may lead to falsely low results. Testing should be performed immediately prior to Metamizole dosing. 04/01/2020 8:52 AM EST 04/01/2020 6:20 PM EST Eric Brooks MD LAB BLOOD ORDERABLES Final Result [facility] from Last 3 Months or Most Recently Relevant to Health Maintenance Insurance [facility] Care Teams Tubing Mill Operator Relationship Specialty Start Date End Date Wayne Matta MD [address] [facility] 110 [place] [address] PCP - General 05/30/99
--- OUTSIDE RECORDS SUMMARY | 2025-03-04 13:33 | XMS_ITS | Clinical Summary ---
Author Organization [facility] Address [address] [place] [address] Care Team Providers Care Bullet Swaging Machine Adjuster Name Role Phone Wayne Matta MD Primary Care Provider [phone] Manuel Mccauley Unavailable [phone] Allergies Active Allergy Reactions Criticality Noted Date Comments Amoxicillin Rash 04/05/2017 Rosuvastatin Calcium Intolerance 04/05/2017 myalgia Simvastatin Swelling 04/05/2017 Medications zolpidem (AMBIEN) 10 mg tab Take 1 tablet by mouth at bedtime as needed (for insomnia). 30 tablet 0 02/20/2016 Active atorvastatin (LIPITOR) 40 mg tablet Take by mouth once daily. Active ciprofloxacin HCl (CIPRO) 500 mg tablet Take by mouth twice daily. Active ONETOUCH ULTRA TEST test strip 01/17/2017 Act omi TRULICITY 1.5 mg/0.5 mL pnij 02/21/2017 Acti ve mometasone (NASONEX) 50 mcg/actuation nasal spray 05/12/2016 Active metFORMIN (GLUCOPHAGE) 1,000 mg tablet 03/30/2017 Act omi ALPRAZolam (XANAX) 0.25 mg tablet 0 04/01/2017 Active losartan (COZAAR) 50 mg tablet Take 1 tablet by mouth once daily. 90 tablet 3 05/09/2017 Active metoprolol succinate ER (TOPROL XL) 100 mg Tb24 Take 1 tablet by mouth once daily. 90 tablet 3 05/09/2017 Active Family History Medical History Relation Comments Heart Father CAD w/ Stents Heart Maternal Grandfather NM Diabetes Mother Heart Mother CAD w/ Stents Lipids Mother Stroke Mother Heart Paternal Grandfather NM Relation Status Comments Father Maternal Grandfather Mother Paternal Grandfather Social History Tobacco Use Types Packs/Day Years Used Date Smoking Tobacco: Every Day Cigarettes 0.5 30 Smokeless Tobacco: Never Alcohol Use Standard Drinks/Week Comments No 0 (1 standard drink = 0.6 oz pur e alcohol) Comments Unknown Sex and Gender Information Value Date Recorded Sex Assigned at Not on file Legal Sex Female 11:46 AM EDT Gender Identity Not on file Sexual Orientation Not on file 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 Not on file Not on file Last Filed Vital Signs Vital Sign Reading Time Taken Comments Blood Pressure 120/72 04/19/2017 1:23 PM EST Pulse 93 04/19/2017 1:23 PM EST Temperature - - Respiratory Rate 18 04/19/2017 1:23 PM EST Oxygen Saturation 98% 04/19/2017 1:23 PM EST Inhaled Oxygen Concentration - - Weight 91.6 kg (202 lb) 04/19/2017 1:23 PM EST Height 157.5 cm (5' 2 ) 04/19/2017 1:23 PM EST Body Mass Index 36.95 04/19/2017 1:23 PM EST Plan of Treatment Health Maintenance Due Date Last Done Comments Anxiety Screening 01/05/1988 Depression Screening 01/05/1988 HIV Screening 01/05/1988 Hepatitis C Screening 01/05/1988 DTaP,Tdap,Td Vaccine (1 - Tdap) 1989 Hepatitis B Vaccine (1 of 3 - 19+ 3-dose series) 01/04 Cervical Cancer Screening [address] Colonography 2015 Cologuard (FIT-DNA) 2015 Colonoscopy 2015 Colorectal Cancer Screening 2015 Diabetes Screening 2015 Fecal Occult Blood 2015 Lipid Screening 2015 Sigmoidoscopy 2015 Pneumococcal Vaccine: 50+ (1 of 1 - PCV) 01/05/2020 Shingrix Vaccine (1 of 2) 01/05/2020 Covid-19 Vaccine (1 - 2024- season) 2025 Influenza Vaccine (#1) 2025 Insurance [employer] ACCESS PPO Care Teams Bullet Swaging Machine Adjuster Relationship Specialty Start Date End Date Wayne Matta MD [address] [facility] 110 [place] [address] PCP - General Family Medicine 04/05/17 Manuel Mccauley [address] [place] [address] Primary Staff Physician Cardiology 08/15/18
--- OUTSIDE RECORDS SUMMARY | 2025-03-04 13:33 | XMS_ITS | Encounter Summary ---
Author Organization [facility] Address [address] [place] [address] Care Team Providers Care Knuckle Bender Name Role Phone Wayne Matta MD Unavailable Wayne Matta MD Primary Care Provider [phone] Encounter Details Date Type Department Care Team (Late st Contact Info) Description 05/28/2024 Abstract [facility] [place] [facility] [address] [facility] 110 [place] [address] Wayne Matta MD 112 [facility] 110 [place] [address] Social History Tobacco Use Types Packs/Day Years [...] How often do you attend chur or shinto services? Patient declined 02/01/2023 Do you belong to any clubs o r organizations such as jain groups, unions, fraternal or athletic groups, or [...] care, and heating? Not very hard 02/01/2023 [facility] - Occupational Stress Questionnaire Answer [...] place to sleep or slept in a fdc (including now)? No 02/01/2023 Comments Unknown Sex [...] Visit [facility] [place] Melgar [address] [place] [address] [place] [address] Wayne Matta MD [address] [facility] 110 [place] [address] documented as of this encounter Visit Diagnoses Not on filedocumented in this encounter Care Teams Knuckle Bender Relationship Specialty Start Date End Date Wayne Matta MD [address] [facility] 110 [place] [address] PCP - [place] [employer] 08/28/20 Wayne Matta MD [address] [facility] [address] [place] [address] PCP - General Family Medicine 10/05/22 documented as of this encounter
--- OUTSIDE RECORDS SUMMARY | 2025-03-04 13:34 | XMS_ITS | Encounter Summary ---
Author Organization [facility] Address [address] [place] [address] Care Team Providers Care Bar Examiner Name Role Phone Wayne Matta MD Unavailable Wayne Matta MD Primary Care Provider [phone] Encounter Details Date Type Department Care Team (Late st Contact Info) Description 02/16/2023 Abstract [facility] [place] [facility] [address] [facility] 110 [place] [address] Wayne Matta MD 112 [facility] 110 [place] [address] Social History Tobacco Use Types Packs/Day Years Used Date Smoking Tobacco: Former Cigarettes Smokeless Tobacco: Never Alcohol Use Standard Drinks/Week Comments Not Currently [...] often do you attend chur ch or faith services? Patient declined 02/01/2023 Do you belong to any clubs o r organizations such as restorationism groups, unions, fraternal or athletic groups, or [...] care, and heating? Not very hard 02/01/2023 [facility] Occupat ional Health - Occupational Stress [...] Orientation Straight 01/31/2023 5: 29 PM EDT COVID-19 Exposure Response Date Recorded In the last 10 days, have yo u been in contact with someone who was confirmed or suspected to have Coronavirus/COVID-19? No / Unsure 02/17/2023 8:10 AM EDT documented as of this encounter Plan of Treatment Upcoming Encounters Date Type Department Care Team (Late st Contact Info) Description 03/04/2025 3:30 PM EDT Office Visit [facility] [place] [facility] [address] [facility] 110 [place] [address] Wayne Matta MD [address] [facility] 110 [place], [place] [id number] documented as of this encounter Visit Diagnoses Not on filedocumented in this encounter Care Teams Bar Examiner Relationship Specialty Start Date End Date Wayne Matta MD [address] [facility] 110 [place], [place] [id number] PCP - [place] [employer] 08/28/20 Wayne Matta MD [address] [place] [address] PCP - General Family Medicine 10/05/22 documented as of this encounter
--- OUTSIDE RECORDS SUMMARY | 2025-03-04 13:34 | XMS_ITS | Encounter Summary ---
Author Organization [facility] Address [address] [place] [address] Care Team Providers Care Faculty Dean Name Role Phone Wayne Matta MD Unavailable Wayne Matta MD Primary Care Provider [phone] Encounter Details Date Type Department Care Team (Late st Contact Info) Description 03/09/2023 Abstract [facility] [place] [facility] [address] [facility] 110 [place] [address] Wayne Matta MD 112 [facility] 110 [place] [address] Social History Tobacco Use Types Packs/Day Years [...] often do you attend chur ch or adventist services? Patient declined 02/01/2023 Do you belong to any clubs o r organizations such as scientology groups, unions, fraternal or athletic groups, or [...] very hard 02/01/2023 [facility] Occupat ional Health - Occupational [...] place to sleep or slept in a nursing home (including now)? No 02/01/2023 Comments Unknown [...] suspected to have Coronavirus/COVID-19? No / Unsure 02/23/2023 10:19 AM EDT documented as of this encounter Plan of Treatment Upcoming Encounters Date Type Department Care Team (Late st Contact Info) Description 03/04/2025 3:30 PM EDT Office Visit [facility] [place] [facility] [address] [facility] 110 [place] [address] Wayne Matta MD [address] [facility] 110 [place], [place] [id number] documented as of this encounter Visit Diagnoses Not on filedocumented in this encounter Care Teams Faculty Dean Relationship Specialty Start Date End Date Wayne Matta MD [address] [facility] 110 [place], [place] [id number] PCP - [place] [employer] 08/28/20 Wayne Matta MD [address] [place] [address] PCP - General Family Medicine 10/05/22 documented as of this encounter
--- OUTSIDE RECORDS SUMMARY | 2025-03-04 13:34 | XMS_ITS | Encounter Summary ---
Author Organization [facility] Address [address] [place] [address] Care Team Providers Care Labourers Name Role Phone Wayne Matta MD Unavailable Wayne Matta MD Primary Care Provider [phone] Encounter Details Date Type Department Care Team (Late st Contact Info) Description 02/18/2023 External Result Encounter [facility] External Department Unsolicited Rajwinder Mendiola, MALGORZATA 112 [facility] 110 [place] [address] Social History Tobacco Use Types Packs/Day Years [...] often do you attend chur ch or jainism services? Patient declined 02/01/2023 Do you belong to any clubs o r organizations such as congregational groups, unions, fraternal or athletic groups, or [...] care, and heating? Not very hard 02/01/2023 [facility] of Occupat ional Health - Occupational [...] EDT Office Visit ABNERS Rick Melgar 112 [facility] 110 [place] [address] Wayne Matta MD 112 [facility] 110 [place] [address] documented as of this encounter Procedures Procedure Name Priority Date/Time Associated Diagnosis Comments XR CERVICAL SPINE COMPLETE 4-5 VIEWS 02/18/2023 2:02 PM EDT documented in this encounter Results * XR cervical spine complete 4 to 5 views (02/18/2023 2:02 PM EDT) Anatomical Region Laterality Modality Spine, C-spine Radiographic Sweetie ging 02/18/2023 2:02 PM EDT Impressions 04/12/2023 8:26 AM EST No fracture or dislocation. There is straightening of the normal cervical lordosis which may be positional or secondary to muscle spasm. Degenerative changes are noted in the cervical spine predominantly at C5-C6. Impression dictated by: Justin Thao M.D.02/18/2023 2:04 PM Dictation Location: [place] [address] Transcribed By: [facility] 02/18/23 1404 Dictated By: Justin Thao II, MD 02/18/23 140 Signed By: <Electronically signed by Justin Thao II, MD in OV> 02/18/23 1404 Narrative 04/12/2023 8:26 AM EST [facility] Main [address] [address] XRay Report Signed Patient: Merari Dueñas MR#: [id number] : 1970 Acct:[id number] Age/Sex: 53 / F ADM Date: 02/18/23 Loc: XD Room: Type: [facility] Attending Dr: Rajwinder Mendiola SETTLEMENT TECHNICIAN-C Copies to: Rajwinder Mendiola PA-C Ordering Provider: Rajwinder Mendiola PA-C Date of Service: 02/18/23 XR/XR cervical spine 5V*: M54.2 XR cervical spine 5V* 02/18/2023 9:39 AM SIGNS AND SYMPTOMS: Posterior neck pain PROTOCOLS: Frontal, lateral, odontoid, and oblique radiographs of the cervical spine COMPARISON: None FINDINGS: There is straightening of the normal cervical lordosis. The bones are otherwise in anatomic alignment.. There is preservation of the vertebral body heights. There is mild vertebral disc heig ht loss at C5-C6 with uncovertebral joint spurring. Mild facet and uncovertebral joint degenerative change contributing to mild bilateral neural foraminal narrowing at C5-C6. There is no fracture or destructive lesion. XR/XR cervical spine 5V* Procedure Note Radiology, Radiologist, - 04/12/2023 [facility] Main [address] [address] XRay Report Signed Patient: Merari Dueñas LMR#: [id number] : 1970Acct:[id number] Age/Sex: 53 / FADM Date: 02/18/23 Loc: XD Room:Type: [facility] Attending Dr: Rajwinder Mendiola SETTLEMENT TECHNICIAN-C Copies to: Rajwinder Mendiola PA-C Ordering Provider: Rajwinder Mendiola PA-C Date of Service: 02/18/23 XR/XR cervical spine 5V*: M54.2 XR cervical spine 5V* 02/18/2023 9:39 AM SIGNS AND SYMPTOMS: Posterior neck pain PROTOCOLS: Frontal, lateral, odontoid, and oblique radiographs of thecervical spine COMPARISON: None FINDINGS: There is straightening of the normal cervical lordosis. The bones areotherwise in anatomic alignment.. There is preservation of the vertebral body heights. There ismild vertebral disc heig ht loss at C5-C6 with uncovertebral joint spurring. Mild facet anduncovertebral joint degenerative change contributing to mild bilateral neural foraminal narrowing at C5-C6.There is no fracture or destructive lesion. XR/XR cervical spine 5V* IMPRESSION: No fracture or dislocation. There is straightening of the normal cervical lordosis which may bepositional or secondary to muscle spasm. Degenerative changes are noted in the cervical spine predominantly atC5-C6. Impression dictated by: Justin Thao M.D.02/18/2023 2:04 PM Dictation Location: [place] [address] Transcribed By: [facility] 02/18/23 1404 Dictated By: Justin Thao II, MD 02/18/23 1402 Signed By: <Electronically signed by Justin Thao II, MD inOV> 02/18/23 1404 us Rajwinder MCGARRY IMG XR PROCEDURES Final Result documented in this encounter Visit Diagnoses Not on filedocumented in this encounter Care Teams Labourers Relationship Specialty Start Date End Date Wayne Matta MD [address] [place] [address] PCP - [place] [employer] 08/28/20 Wayne Matta MD 112 [place] [address] PCP - General Family Medicine 10/05/22 documented as of this encounter
--- OUTSIDE RECORDS SUMMARY | 2025-03-04 13:34 | XMS_ITS | Encounter Summary ---
Author Organization [facility] Address [address] [place] [address] Care Team Providers Care Sales Engineer Engineered Products Name Role Phone Wayne Matta MD Unavailable Wayne Matta MD Primary Care Provider [phone] Encounter Details Date Type Department Care Team (Late st Contact Info) Description 10/16/2024 Abstract [facility] [place] [facility] [address] [facility] 110 [place] [address] Wayne Matta MD 112 [facility] 110 [place] [address] Social History Tobacco Use Types Packs/Day Years [...] How often do you attend chur or hindu services? Patient declined 02/01/2023 Do you belong to any clubs o r organizations such as yazidism groups, unions, fraternal or athletic groups, or [...] care, and heating? Not very hard 02/01/2023 [facility] - Occupational Stress Questionnaire Answer [...] place to sleep or slept in a retirement (including now)? No 02/01/2023 Comments Unknown Sex [...] Visit [facility] [place] [facility] [address] [place] [address] [place] [address] Wayne Matta MD [address] [facility] 110 [place] [address] documented as of this encounter Visit Diagnoses Not on filedocumented in this encounter Care Teams Sales Engineer Engineered Products Relationship Specialty Start Date End Date Wayne Matta MD [address] [facility] 110 [place] [address] PCP - [place] [employer] 08/28/20 Wayne Matta MD [address] [facility] 110 [place] [address] PCP - General Family Medicine 10/05/22 documented as of this encounter
--- OUTSIDE RECORDS SUMMARY | 2025-03-04 13:34 | XMS_ITS | Encounter Summary ---
Author Organization [facility] Address [address] [place] [address] Care Team Providers Care Loss Prevention Representative Name Role Phone Wayne Matta MD Unavailable Wayne Matta MD Primary Care Provider [phone] Encounter Details Date Type Department Care Team (Late st Contact Info) Description 09/21/2024 Abstract [facility] [place] [facility] [address] [facility] 110 [place] [address] Wayne Matta MD 112 [facility] 110 [place] [address] Social History Tobacco Use Types Packs/Day Years [...] any clubs o r organizations such as rastafari groups, unions, fraternal or athletic groups, or [...] care, and heating? Not very hard 02/01/2023 [facility] - Occupational Stress Questionnaire Answer [...] Visit [facility] [place] [facility] [address] [place] [address] [place] [address] Wayne Matta MD [address] [facility] 110 [place] [address] documented as of this encounter Visit Diagnoses Not on filedocumented in this encounter Care Teams Loss Prevention Representative Relationship Specialty Start Date End Date Wayne Matta MD [address] [facility] [place] [address] PCP - [place] [employer] 08/28/20 Wayne Matta MD [address] [facility] 110 [place] [address] PCP - General Family Medicine 10/05/22 documented as of this encounter
--- OUTSIDE RECORDS SUMMARY | 2025-03-04 13:34 | XMS_ITS | Encounter Summary ---
Author Organization [facility] Address [address] [place] [address] Care Team Providers Care Knife Operator Name Role Phone Wayne Matta MD Unavailable Wayne Matta MD Primary Care Provider [phone] Encounter Details Date Type Department Care Team (Late st Contact Info) Description 03/14/2023 Orders Only [facility] [place] [facility] [address] [facility] 110 [place] [address] Wayne Matta MD 112 [facility] 110 [place], [place] [address] Social History Tobacco Use Types Packs/Day Years [...] often do you attend chur ch or anabaptism services? Patient declined 02/01/2023 Do you belong [...] care, and heating? Not very hard 02/01/2023 [facility] Occupat ional Health - Occupational [...] place to sleep or slept in a longterm (including now)? No 02/01/2023 Comments Unknown Sex [...] PM EDT Office Visit [facility] [place] [facility] 112 [facility] 110 [place] [address] Wayne Matta MD 112 [facility] 110 [place] [address] documented as of this encounter Procedures Procedure Name Priority Date/Time Associated Diagnosis Comments DIABETIC RETINOPATHY SCREENING - OU - BOTH EYES Routine 12/29/2022 1:53 PM EDT documented in this encounter Results * Diabetic Retinopathy Screening - OU - Both Eyes (12/29/2022 1:53 PM EDT) Anatomical Region Laterality Modality Head Other Wayne Matta MD OPHTH PHOTOGRAPHY Final Result documented in this encounter Visit Diagnoses Not on filedocumented in this encounter Care Teams Knife Operator Relationship Specialty Start Date End Date Wayne Matta MD 112 [facility] 110 [place] [address] PCP - [place] [employer] 08/28/20 Wayne Matta MD 112 [facility] 110 [place] [address] PCP - General Family Medicine 10/05/22 documented as of this encounter
--- OUTSIDE RECORDS SUMMARY | 2025-03-04 13:34 | XMS_ITS | Encounter Summary ---
Author Organization [facility] Address [address] [place] [address] Care Team Providers Care Aviation Electrical Technician Name Role Phone Wayne Matta MD Unavailable Wayne Matta MD Primary Care Provider [phone] Encounter Details Date Type Department Care Team (Late st Contact Info) Description 09/27/2024 Abstract [facility] [place] [facility] [address] [facility] 110 [place] [address] Wayne Matta MD 112 [facility] 110 [place] [address] Social History Tobacco Use Types Packs/Day Years [...] How often do you attend chur or mandaen services? Patient declined 02/01/2023 Do you belong to any clubs o r organizations such as hoahaoism groups, unions, fraternal or athletic groups, or [...] care, and heating? Not very hard 02/01/2023 [facility] - Occupational Stress Questionnaire Answer Date [...] Visit [facility] [place] Melgar [address] [place] [address] [place] [address] Wayne Matta MD [address] [facility] 110 [place] [address] documented as of this encounter Visit Diagnoses Not on filedocumented in this encounter Care Teams Aviation Electrical Technician Relationship Specialty Start Date End Date Wayne Matta MD [address] [facility] 110 [place] [address] PCP - [place] [employer] 08/28/20 Wayne Matta MD [address] [facility] 110 [place] [address] PCP - General Family Medicine 10/05/22 documented as of this encounter
--- OUTSIDE RECORDS SUMMARY | 2025-03-04 13:34 | XMS_ITS | Encounter Summary ---
Author Organization [facility] Address [address] [place] [address] Phone Care Team Providers Care Livestock Laborer Name Role Phone Wayne Matta MD Primary Care Provider [phone] Encounter Details Date Type Department Care Team (Late st Contact Info) Description 02/05/2019 Orders Only [facility] [address] [place] [address] Conversion, Onbase Social History Tobacco Use Types Packs/Day Years Used Date Smoking Tobacco: Never Assessed Comments Unknown Sex and Gender Information Value Date Recorded Sex Assigned at Not on file Legal Sex Female 8:31 AM EST Gender Identity Not on file Sexual Orientation Not on file documented as of this encounter Plan of Treatment Upcoming Encounters Date Type Department Care Team (Late st Contact Info) Description 07/10/2025 9:30 AM EST Office Visit [facility] [address] [facility] 250 [place] [address] Nahid Coats MD [address] [employer] [address], [employer] 250 [place] [address] Scheduled Orders Name Type Priority Associated Diagnoses Orde r Schedule OUTSIDE LAB SCAN Lab Ordered: 02/05/2019 documented as of this encounter Visit Diagnoses Not on filedocumented in this encounter Care Teams Livestock Laborer Relationship Specialty Start Date End Date Wayne Matta MD [address] [facility] 110 [place] [address] PCP - General 05/30/99 documented as of this encounter
--- OUTSIDE RECORDS SUMMARY | 2025-03-04 13:34 | XMS_ITS | Encounter Summary ---
Author Organization [facility] Address [address] [place] [address] Care Team Providers Care Pari Mutual Ticket Checker Name Role Phone Wayne Matta MD Unavailable Wayne Matta MD Primary Care Provider [phone] Encounter Details Date Type Department Care Team (Late st Contact Info) Description 03/07/2023 [facility] [address] [facility] 110 [place] [address] A, Unknown Practice [address] [place] [phone] Social History Tobacco Use Types Packs/Day Years [...] often do you attend chur ch or congregational services? Patient declined 02/01/2023 Do you belong to any clubs o r organizations such as rastafarian groups, unions, fraternal or athletic groups, or [...] care, and heating? Not very hard 02/01/2023 [facility] of Occupat ional Health - Occupational Stress [...] 03/04/2025 3:30 PM EDT Office Visit [facility] [place] Melgar 112 [facility] 110 [place] [address] Wayne Matta MD 112 [facility] 110 [place] [address] documented as of this encounter Procedures Procedure Name Priority Date/Time Associated Diagnosis Comments XR CERVICAL SPINE COMPLETE 4-5 VIEWS Routine 02/18/2023 9:15 AM EDT documented in this encounter Results * XR cervical spine complete 4 to 5 views (02/18/2023 9:15 AM EDT) Anatomical Region Laterality Modality Spine, C-spine Radiographic Sweetie ging us Unknown Practice A IMG XR PROCEDURES Final Resul t documented in this encounter Visit Diagnoses Not on filedocumented in this encounter Care Teams Pari Mutual Ticket Checker Relationship Specialty Start Date End Date Wayne Matta MD [address] [address] [facility] Wayne Matta MD [address] [address] PCP - General Family Medicine 10/05/22 documented as of this encounter
--- OUTSIDE RECORDS SUMMARY | 2025-03-04 13:34 | XMS_ITS | Encounter Summary ---
Author Organization [facility] Address [address] [place] [address] Care Team Providers Care Coremaker Machine Name Role Phone Wayne Matta MD Unavailable Wayne Matta MD Primary Care Provider [phone] Encounter Details Date Type Department Care Team (Late st Contact Info) Description 03/15/2023 Abstract [facility] [address] [facility] 110 [place] [address] Wayne Matta MD 112 [facility] 110 [place] [address] Social History Tobacco Use Types Packs/Day Years [...] How often do you attend chur or buddhist services? Patient declined 02/01/2023 Do you belong to any clubs o r organizations such as orthodox groups, unions, fraternal or athletic groups, or [...] care, and heating? Not very hard 02/01/2023 [facility] of Occupat ional Health - Occupational Stress [...] PM EDT [facility] [place] [facility] [address] [facility] 110 [place] [address] Wayne Matta MD [address] [facility] 110 [place] [id number] documented as of this encounter Visit Diagnoses Not on filedocumented in this encounter Care Teams Coremaker Machine Relationship Specialty Start Date End Date Wayne Matta MD [address] [facility] 110 [place] [id number] PCP - Paulo Castillo 08/28/20 Wayne Matta MD [address] [place] [address] PCP - General Family Medicine 10/05/22 documented as of this encounter
--- NOTE | 2025-03-04 13:35 | MM_ITS ---
Patient Name: JODIE SWIFT MR#: [id number] : 1970 Exam Date: 03/04/2025 Ordering Doctor: DR DANIELITO CARMICHAEL M.D. RADIOLOGY REPORT PROCEDURE: MM TOMOSYNTHESIS SCREENING BI COMPARISON: MG MAMM SCREEN 3D EDUIN CAD, 06/02/2022. MG MAMM SCREEN 3D EDUIN CAD, 12/23/2020. MG MAMM SCREEN EDUIN W CAD, 02/27/2019. INDICATIONS: Screening Calculator Name NCI Breast Cancer Risk Assessment Tool 5 Year Breast Cancer Risk 1.30% Lifetime Breast Cancer Risk 9.10% Personal Breast Cancer No Personal Ovarian Cancer No Treatments None Family Cancers None LOCATION: [facility] BREAST COMPOSITION: The breasts are extremely dense, which lowers the sensitivity of mammography. FINDINGS: RIGHT BREAST: No significant suspicious finding. Benign-appearing calcifications are present. Benign-appearing lymph nodes are noted along the chest wall. Similar focal asymmetries are present. LEFT BREAST: No significant suspicious finding. Benign-appearing calcifications are present. Benign-appearing lymph nodes are noted along the chest wall. Similar focal asymmetries are present. DIAGNOSTIC CATEGORY 2--BENIGN FINDING. NO CHANGE FROM COMPARISON. RECOMMENDATIONS: ROUTINE MAMMOGRAM AND CLINICAL EVALUATION IN 12 MONTHS. Dictated by: Justin Thao MD on 03/04/2025 at 17:36 Approved by: Justin Thao MD on 03/04/2025 at 17:38
--- OUTSIDE RECORDS SUMMARY | 2025-03-04 15:30 | XMS_ITS | Encounter Summary ---
Author Organization [facility] Address [address] [place] [address] Care Team Providers Care Hi Lo Driver Name Role Phone Wayne Matta MD Unavailable Wayne Matta MD Primary Care Provider [phone] Reason for Visit * Reason Comments Diabetes Last 6.4 Hypertension Encounter Details Date Type Department Care Team (Late st Contact Info) Description 03/04/2025 3:30 PM EDT Office Visit [facility] [address] [facility] [address] [place] [id number] Wayne Matta MD 112 [facility] [address] [place] [address] Social History Tobacco Use Types Packs/Day Years [...] How often do you attend chur or taoism services? Patient declined 02/01/2023 Do you belong to any clubs o r organizations such as buddhism groups, unions, fraternal or athletic groups, or [...] Recorded Patient Health Questionnaire-2 Score 0 03/04/2025 [facility] - Occupational Stress [...] PM EDT documented as of this encounter Functional Status * Over the past 2 weeks, how often have you been bothered by any of the following problems? Question Answer Date of Assessment Author Little interest or pleasure in doing things Not at all 03/04/2025 7:18 AM EDT Leela Avina MA Feeling down, depressed, or hopeless Not at all 03/04/2025 7:18 AM EDT Leela Avina MA Patient Health Questionnaire -2 Score 0 03/04/2025 7:18 AM EDT Leela Avina MA documented as of this encounter Plan of Treatment Not on file documented as of this encounter Visit Diagnoses Not on filedocumented in this encounter Care Teams Hi Lo Driver Relationship Specialty Start Date End Date Wayne Matta MD [address] [id number] [facility] Wayne Matta MD [address] [place] [id number] PCP - General Family Medicine 10/05/22 documented as of this encounter
== END 2025-03-04 13:28 | disposition home or self-care (01) ==
LOC: MAMMO 13:32
PROVIDERS: PCP Family Medicine; Visit Provider Family Medicine
DX: Z12.31 Encounter for screening mammogram for malignant neoplasm of breast (principal)
CPT/HCPCS: 77063; 77067